=== PATIENT | male | born 1985 | race African-American/Black ===

== ENCOUNTER 2025-04-18 10:59 | Emergency (ER) | payer OTHER ==
[~2025-04-18] VITALS: Ht 185.4 cm; Wt 102.1 kg
[2025-04-18 11:08] VITALS: BP 133/88; TEMP 98.1; O2SAT 97
[2025-04-18] MEDS ORDERED: CETI1TAB9 PO (11:26)
== END 2025-04-18 12:10 | disposition home or self-care (01) ==
LOC: ER 11:06
DX: J06.9 Acute upper respiratory infection, unspecified (principal); E11.9 Type 2 diabetes mellitus without complications